=== PATIENT | male | born 1975 | race Caucasian/White ===

== ENCOUNTER 2017-12-07 09:50 | Emergency (ER) | payer OTHER ==
[~2017-12-07] VITALS: Ht 177.8 cm; Wt 59.0 kg
--- NOTE | 2017-12-07 09:55 | NUR ---
AKIN AND SAMUEL DT SEVERE BACK UMU, 12/30,NO RECENT TRAUMA.PATIENT NOT IN DISTRESS. SKIN IS WARM TO TOUCH AND NON DIAPHORETIC. PATIENT IS AFEBRILE.VSS
--- NOTE | 2017-12-07 10:01 | NUR ---
SEEN AND EXAMINED BY MD ARSHAD, PT WAS MEDICALLY CLEARED
[2017-12-07 10:02] VITALS: BP 130/80
--- NOTE | 2017-12-07 10:02 | NUR ---
DC PATIENT UNDER CUSTODY
== END 2017-12-07 10:03 | disposition home or self-care (01) ==
LOC: ER 09:51
DX: M54.9 Dorsalgia, unspecified (principal)
CPT/HCPCS: 99283; A4606; Z7610